=== PATIENT | male | born 1985 | race Hispanic/Latino ===

== ENCOUNTER 2020-08-27 17:36 | Emergency (ER) | payer BC ==
[~2020-08-27] VITALS: Ht 170.2 cm; Wt 108.9 kg
[2020-08-27 17:41] VITALS: BP 140/87
[2020-08-27] MEDS ORDERED: SODIUM CHLORIDE 0.9% 1000ML 1,000 ML IV ONE ×3 (17:53→19:45)
[2020-08-27] MEDS ORDERED: KETOROLAC 30MG VIAL (30MG/ML) ONE (17:54)
[2020-08-27 18:00] LABS: BASOPHILS % (AUTO) 0.2 % (0.0-5.0); EOSINOPHILS % (AUTO) 2.2 % (0.0-8.0); HEMATOCRIT 42.4 % (42-54); LYMPHOCYTES % (AUTO) 46.6 % (21.0-51.0); MEAN CORPUSCULAR HEMOGLOBIN 28.7 pg (27.0-33.0); MEAN CORPUSCULAR VOLUME 86.9 fL (79-99); MONOCYTES % (AUTO) 9.1 % (3.0-13.0); NEUTROPHILS % (AUTO) 41.7 % (40.0-77.0); PLATELET COUNT (AUTO) 256 K/uL (130-400); RED BLOOD CELL COUNT(AUTO) 4.88 MIL/uL (4.50-6.20); RED CELL DISTRIBUTION WIDTH 12.6 % (11.0-15.5); WHITE BLOOD COUNT (AUTO) 9.6 K/uL (4.8-10.8)
[2020-08-27] MEDS ORDERED: SODIUM CHLORIDE 0.9% 1000ML 1,000 ML IV SCH (18:00)
[2020-08-27] MEDS ORDERED: KETOROLAC 30MG VIAL (30MG/ML) IV ONE (18:00)
[2020-08-27] MEDS ORDERED: MORPHINE 5 MG/ML VIAL (5MG OR GREATER DOSE) IV ONE (18:00)
[2020-08-27] MEDS ORDERED: PROMETHAZINE HCL 25 MG/ML 1ML AMPULE IM ONE (18:00)
[2020-08-27 18:12] LABS: CREATININE 1.4 mg/dL (0.5-1.5); POTASSIUM 3.8 mmol/L (3.5-5.1)
[2020-08-27 18:17] LABS: ALBUMIN 3.9 g/dL (3.5-5.0); BILIRUBIN,TOTAL 0.3 mg/dL (0.2-1.0); TOTAL PROTEIN, SERUM 7.9 g/dL (6.0-8.3)
[2020-08-27] MEDS ORDERED: MORPHINE 5 MG/ML VIAL (5MG OR GREATER DOSE) ONE (18:18)
[2020-08-27] MEDS ORDERED: TAMSULOSIN HCL 0.4 MG CAP.ER.24H PO ONE (19:00)
[2020-08-27 19:35] VITALS: BP 131/81
[2020-08-27 20:01] LABS: APPEARANCE,URINE Cloudy (CLEAR); BILIRUBIN,URINE Negative (NEGATIVE); COLOR,URINE Dark Yellow (YELLOW); GLUCOSE, URINE (UA) Negative (NEGATIVE); KETONES,URINE Trace mg/dL (NEGATIVE); LEUKOCYTE ESTERASE ,URINE Negative (NEGATIVE); NITRATE,URINE Negative (NEGATIVE); OCCULT BLOOD,URINE Large (NEGATIVE); PROTEIN,URINE POS 1+ mg/dL (NEGATIVE)
[2020-08-27 20:07] LABS: WBC,URINE 0-1 /HPF (0-1)
[2020-08-27 20:08] LABS: BACTERIA,URINE Few /HPF (None Seen); MUCUS,URINE Moderate LPF (None Seen); SQUAMOUS EPITHELIAL CELL,UR Few /HPF (0-2)
[2020-08-27] MEDS ORDERED: KETO10 PO (20:29)
[2020-08-27] MEDS ORDERED: CEPH500B PO (20:29)
[2020-08-27] MEDS ORDERED: TAMS-1 PO (20:29)
[2020-08-27 20:43] VITALS: BP 119/64
== END 2020-08-27 20:54 | disposition home or self-care (01) ==
LOC: EDH 17:36
DX: N20.0 Calculus of kidney (principal); Z79.1 Long term (current) use of non-steroidal anti-inflammatories (NSAID); Z79.899 Other long term (current) drug therapy
CPT/HCPCS: 36415; 74176; 80053; 81001; 83690; 85025; 96361; 96372; 96374; 96375; 99285; J1885; J2270; J7030 ×2